=== PATIENT | female | born 1995 | race African-American/Black ===

== ENCOUNTER 2022-12-12 20:38 | Emergency (ER) | payer OTHER ==
[~2022-12-12] VITALS: Ht 162.6 cm; Wt 60.5 kg
[2022-12-12 20:50] VITALS: BP 141/81; PULSE 100; RESP 14; TEMP 98.4
== END 2022-12-12 22:29 | disposition home or self-care (01) ==
LOC: ER 20:38
DX: J11.1 Influenza due to unidentified influenza virus with other respiratory manifestations (principal)
CPT/HCPCS: 99281